=== PATIENT | male | born 1950 | race Caucasian/White ===

== ENCOUNTER 2023-06-13 18:05 | Emergency (ER) | payer MEDICARE, SELFPAY ==
--- NOTE | ~2023-06-13 | CT_ITS ---
EXAMINATION: CT HEAD WITHOUT CONTRAST CT FACIAL BONES WITHOUT CONTRAST CT CERVICAL SPINE WITHOUT CONTRAST CLINICAL INFORMATION: Fall. Pain. COMPARISON: None available. TECHNIQUE: Imaging was performed from the skull base to vertex without intravenous administration of contrast. In addition, helical noncontrast CT imaging was acquired through the cervical spine and facial bones and source images were reviewed along with axial reconstructions and sagittal and coronal MPRs. This CT examination was performed using dose optimization techniques as appropriate, variously including the following: *Automated exposure control. *Adjustment of mA and/or kV according to patient size (this includes techniques or standardized protocols for targeted exams where dose is matched to indication/reason for exam; i.e. extremities or head). *Use of iterative reconstruction technique. DLP: 1326 mGy-cm FINDINGS: Head: There is no evidence of acute intracranial hemorrhage or edematous territorial infarction. Elias-white matter differentiation is preserved. Confluent hypoattenuation in the periventricular and deep white matter. Proportional prominence of the ventricles and sulcal spaces without evidence of obstructive hydrocephalus. No abnormal mass effect or midline shift. No extra-axial fluid collections. Calcific atherosclerotic disease of the intracranial internal carotid and vertebral arteries. No hyperdense vessel sign. Small soft tissue laceration and moderate subcutaneous edema along the right aspect of the frontal bone extending along the right supraorbital ridge and preseptal, periorbital soft tissues. No associated acute osseous abnormalities. Maxillofacial Bones: No evidence of maxillofacial bone fractures. The zygomatic arches remain intact. No nasal bone fracture. The nasal septum remains midline. No evidence of mandibular or maxillary fracture. The mandibular condyles remain well-seated in their respective temporal articular grooves. Normal appearance of the intraconal and extraconal fat. No evidence of traumatic injury to the extraocular musculature or globes. Mild mucosal thickening of the paranasal sinuses. The mastoid air cells and middle ear cavities are clear. No layering fluid collections. Empty socket of the maxillary left lateral incisor. Cervical Spine: The atlantooccipital and atlantoaxial articulations remain well aligned. Minimal degenerative anterolisthesis of C4 on C5. Otherwise, normal anatomic alignment. No evidence of acute fracture or subluxation. The vertebral body heights are maintained. Advanced degenerative disc disease from C5-C7. Moderate degenerative disc disease at all additional levels. Facet and uncovertebral joint arthropathy leads to osseous encroachment on the neural foramina from C3-C7. There is no prevertebral soft tissue swelling. The thyroid gland and remaining cervical soft tissues are within normal limits. Calcified pleural plaques along the bilateral lung apices suggests of prior asbestos exposure. Otherwise, the lung apices demonstrate no abnormalities. CT/CT cervical spine wo IV con IMPRESSION: 1. No evidence of acute intracranial hemorrhage or edematous territorial infarction. Moderate to extensive underlying microangiopathy and generalized cerebral volume loss. 2. No evidence of acute fracture or traumatic subluxation of the cervical spine. Moderate multilevel degenerative spondyloarthropathy of the cervical spine. 3. No evidence of acute fracture of the maxillofacial bones. 4. Small soft tissue laceration and moderate edema along the right aspect of the frontal bone extending along the right supraorbital ridge and preseptal, periorbital soft tissues. No associated osseous abnormalities.
--- NOTE | ~2023-06-13 | XR_ITS ---
EXAMINATION: XR RIBS, RIGHT CLINICAL INFORMATION: Fall. COMPARISON: None available. TECHNIQUE: 3 views of the right ribs were obtained. FINDINGS: Lungs are clear. No consolidation, pneumothorax, or pleural effusion. The cardiomediastinal silhouette and pulmonary vasculature are normal. Osseous structures are unremarkable. Ribs are intact. No fractures are identified. XR/XR ribs RT min 3V w CXR1V IMPRESSION: Unremarkable examination.
[2023-06-13 18:21] VITALS: BP 181/90; PULSE 86; RESP 17; TEMP 36.6; O2SAT 98; BMI 24.3
--- NOTE | 2023-06-13 19:35 | ED_ITS ---
HPI - Wound/Laceration General Chief Complaint: Wound/Laceration Stated Complaint: Fall/Hit to face Time Seen by Provider: 06/13/23 19:19 Source: patient and family Mode of arrival: ambulatory Limitations: no limitations History of Present Illness HPI narrative: 73-year-old male here with complaints of trip and fall with head strike. Patient reports he hit his head on the pavement ground. He there was no loss of consciousness. He had been on Eliquis but this was discontinued 8 days ago. He denies any headache, vision changes, vomiting, neck pain. He does report right rib pain. Denies any chest pain, abdominal pain, shortness of breath Unsure of tetanus status Related Data Allergies Allergy/AdvReac Type Severity Reaction Status Date / Time Penicillins [PCN] Allergy Unknown Verified 06/13/23 18:20 Review of Systems 2 Review of Systems: Yes all other systems are reviewed and are negative Constitutional: Constitutional: Reports no additional constitutional complaints, Denies body ache(s), Denies chills, Denies fever(s), Denies headache(s) and Denies weakness Eyes: Eyes: Reports no additional eye complaints and Denies change in vision ENT: Reports system reviewed and no additional complaints, except as documented, Denies dizziness, Denies headache(s), Denies nasal congestion, Denies nasal discharge and Denies neck pain Cardiovascular: Cardiovascular: Reports no additional cardiovascular complaints, Reports chest pain, Denies leg edema and Denies dyspnea Respiratory: Respiratory: Reports no additional respiratory complaints, Denies cough and Denies dyspnea Gastrointestinal: Gastrointestinal: Reports no additional gastrointestinal complaints, Denies abdominal pain, Denies diarrhea, Denies nausea and Denies vomiting Genitourinary: Genitourinary: Denies urinary incontinence Musculoskeletal: Musculoskeletal: Reports no additional musculoskeletal complaints, Denies back pain, Denies arthralgias, Denies joint swelling, Denies neck pain, Denies numbness and Denies tingling Integumentary/Breasts: Skin/Breast: Reports system reviewed and no additional complaints, except as docu, Denies rash and Reports wounds Neurologic: Reports system reviewed and no additional complaints, except as documented, Denies Abnormal speech present, Denies dizziness, Denies headache(s), Denies numbness, Denies tingling and Denies weakness PMF Past Medical History Attestation statement: The following information was validated with the patient. Source: old records reviewed and nursing notes reviewed Social History Social History Advance Directives: No Advance Directives Information Provided: No Physical Exam 2 Vital Signs: Vital Signs: Last Vital Signs Temp 98 F 06/13/23 18:21 Pulse 86 06/13/23 18:21 Resp 17 06/13/23 18:21 BP 181/90 H 06/13/23 18:21 Pulse Ox 98 06/13/23 18:21 O2 Del Method Room Air 06/13/23 18:21 BMI result Body Mass Index 24.3 Const: General: cooperative, healthy appearing, comfortable and no acute distress Orientation/consciousness: patient oriented x3 Limitations: no limitations HEENT: Other: No hemotympanum Head: Yes normal to inspection, No Luther's sign and No raccoon eyes E ars: hearing grossly normal bilaterally and TM's normal bilaterally General nose exam: Normal external nose present Face and sinus: Yes normal facial exam Face images: 1. on the superior aspect the laceration is deeper, the inferior aspect is more superficial abrasion 2. 2cm laceration 3. 5cm laceration Mouth: Normal oral and palatal mucosa present Throat: Yes posterior oropharynx normal Eyes: General: appearance normal, both eyes and all related structures P upils: Equal, round and reactive pupils present Neck: Neck: Yes normal visual inspection Chest: Other: right chest tenderness-no crepitus or ecchymosis Chest palpation & inspection: normal inspection of the chest and tenderness Resp: Effort & Inspection: normal respiratory effort Auscultation: clear to auscultation bilaterally Cardio: Rate: regular rate Rhythm: regular rhythm Peripheral pulses: P eripheral pulses 2+ throughout GI: Inspection: Yes normal to inspection Palpation (GI): Soft to palpation and nontender Auscultation: normal bowel sounds Back/Spine/Pelvis: Thoracic/Lumbar Spine: thoracic and lumbar spine normal to inspection Skin: General skin exam: no rashes or lesions noted Neuro: General: patient oriented x3, moves all extremities, no focal motor deficits and normal sensation to monofilament Cranial nerves: Yes CN's II-XII intact bilaterally, Yes Equal, round and reactive pupils present, Yes Bilaterally intact EOM present, Yes Nystagmus not present, Yes Normal facial strength present and Yes Midline tongue present Cognition (Neuro): normal cognition Speech: No Abnormal speech present Gait exam (Neuro): Normal gait present Motor exam (neuro): 5/5 motor strength present throughout S ensory Exam: Normal double simultaneous stimulation for sensation Extrem: Other: right dorsal hand small skin tear-FROM General: Yes normal to inspection, Yes no pedal edema and Yes no calf tenderness Course Course Course Narrative: 2100-Sign out to Julee EATON pending imaging Reevaluation(s) Reevaluation #1: Patient received in sign-out pending imaging. No evidence of fracture on rib x- ray. No evidence of ICH, skull fracture, cervical vertebral fracture or subluxation, or fracture of maxillofacial bones on CT scans. Results discussed with patient and feel patient is stable for discharge home at this time. Patient and son are in agreement with this plan. Return precautions discussed. Instructed patient to follow-up with his primary care provider this week. Time: 21:55 Medications Administered Discontinued Medications Generic Name Dose Route Start Last Admin Trade Name Darq PRN Reason Stop Dose Admin Acetaminophen 975 mg 06/13/23 21:05 06/13/23 21:23 Acetaminophen 325 Mg Tablet PO 06/13/23 21:06 975 mg ONCE ONE Administration Diphtheria/Tetanus/Acell Pertussis 0.5 ml 06/13/23 21:09 06/13/23 21:14 Diphth,Pertus(Acell),Tet Adult 0.5 Ml Syringe IM 06/13/23 21:10 Not Given .ONCE ONE Lidocaine/Epinephrine 20 ml 06/13/23 19:34 06/13/23 19:53 Lidocaine Hcl 1%/Epi 1:100,000 20 Ml Vial INFILTRATI 06/13/23 19:35 20 ml ONCE ONE Administration Medical Decision Making Medical Decision Making [facility] Narrative: 73-year-old male here with complaints of trip and fall with head strike. Patient reports he hit his head on the pavement ground. He there was no loss of consciousness. He had been on Eliquis but this was discontinued 8 days ago. He denies any headache, vision changes, vomiting, neck pain. He does report right rib pain. Denies any chest pain, abdominal pain, shortness of breath Will need CT head, cervical spine, facial bones, rib xray and wound repair tetanus updated Differential Diagnosis Differential Diagnoses: The differential diagnosis associated with the presentation includes laceration, contusion, abrasion low suspicion for facial fracture, ICH, skull fracture, cervical fracture rib contusion, rib fracture. low concern for intrathoracic or intraabdominal pathology Admission/Observation Consideration of admission/observation: Escalation of care including admission/observation considered Independent Interpretation I performed an independent interpretation of an: Plain X-Ray and CT Scan Radiology Impression Discussion of test interpretation with radiology: I have reviewed the radiologist's reading. Independent Historian Clinical information obtained from an independent historian. History obtained from or confirmed by: Other Procedures Laceration Laceration 1: Site: face Side (If applicable): right Size (cm): 2 Description: linear Depth: simple, single layer Local Anesthetic: lidocaine 1% and with epi Amount of anesthesia used (mL): 1 Pre-repair: wound explored and irrigated extensively Skin layer closed with: other (prolene) Size (cm): 6-0 Number of sutures: 2 Technique: simple, interrupted Laceration 2: Site: face Side (If applicable): right Size (cm): 2 Description: linear Depth: simple, single layer Pre-repair: wound explored and irrigated extensively Skin layer closed with: other (skin glue ) Laceration 3: Site: face Side (If applicable): right Size (cm): 5 Description: irregular Depth: simple, single layer Local Anesthetic: lidocaine 1% Amount of anesthesia used (mL): 3 Pre-repair: wound explored and irrigated extensively Skin layer closed with: other (prolene) Size (cm): 6-0 Number of sutures: 5 Technique: simple, interrupted Laceration 4: Site: hand Side (If applicable): right Description: flap (skin tear) Pre-repair: wound explored and irrigated extensively Skin layer closed with: other (steri strips ) Discharge Plan Discharge Clinical Impression: Laceration, Skin tear of hand without complication, Contusion of rib on right side Patient Disposition: Home, Self-Care Instructions: Laceration (ED), Skin Adhesive Care (ED), Steristrips (ED), Rib Contusion (ED) Additional Instructions: Sutures need to be removed in 5-7 days. You do have several bandages over your sutures and skin tear. These will typically fall off in a few days. You do not need to replace them. You may shower normally. Do not use a washcloth on your face or any scrubbing of your face. Your CT was normal. Return for any severe headache, vomiting or behavior change Take Tylenol for pain as needed Return for any signs of infections just redness, drainage, fever Referrals: Luna Ayala MD [Primary Care Provider] - 1 week
[2023-06-13] MEDS: Lidocaine HCl 1%/Epi 1:100,000 20 ML VIAL INFILTRATI (19:53)
[2023-06-13] MEDS: Acetaminophen 325 MG TABLET 975 MG PO (21:23)
== END 2023-06-13 22:13 | disposition home or self-care (01) ==
PROVIDERS: Emergency Provider Emergency Medicine; PCP Internal Medicine
DX: S61.411A Laceration without foreign body of right hand, initial encounter (principal); S20.211A Contusion of right front wall of thorax, initial encounter; S01.81XA Laceration without foreign body of other part of head, initial encounter; M54.2 Cervicalgia; R51.9 Headache, unspecified; R07.89 Other chest pain; W01.10XA Fall on same level from slipping, tripping and stumbling with subsequent striking against unspecified object, initial encounter; Y93.9 Activity, unspecified; Y92.9 Unspecified place or not applicable; Y99.8 Other external cause status
CPT/HCPCS: 12041; 12053; 70450; 70486; 71101; 72125; 99283; 99284

== ENCOUNTER 2023-08-09 10:10 | Day surgery (SDC) | payer MEDICARE, SELFPAY ==
[2023-08-05 11:05] VITALS: BMI 24.0
--- NOTE | 2023-08-05 14:50 | HO.ANESPROP2 ---
Documented by User: Trinidad Harrington NP 08/06/23 09:11 HPI - Anesthesia Eval Consult details Narrative: 73yo M for Right Cataract Extraction IOL Insertion Eliquis for hx PE No previous cataract on record PMFSH Past Medical History Medical History (Updated 08/05/23 @ 11:08 by Nova Spear, RN) Hx of fall (06/13/23) History of colon cancer Bilateral foot pain History of prostate cancer Ulcerative colitis IBS (irritable bowel syndrome) Hx of diverticulitis of colon Cataract Anxiety Depression Hx of erectile dysfunction Elevated cholesterol HTN (hypertension) Hx pulmonary embolism Surgical History Surgical History (Updated 08/05/23 @ 11:01 by Nova Spear, KARI) Hx of appendectomy Hx of colonoscopy Hx of prostatectomy Social History Social History Patient Tobacco Use Status: Never used Tobacco Use of substances other than those prescribed or required for medical reasons: No Advance Directives: No Advance Directives Information Provided: Yes Advance Directives on File: No Meds Allergies Allergy/AdvReac Type Severity Reaction Status Date / Time Penicillins [PCN] Allergy Unknown Verified 06/13/23 18:20 Home Medications ?Medication ?Instructions ?Recorded ?Confirmed ?Last Taken ?Type amitriptyline 25 mg tablet 25 mg PO BEDTIME 08/05/23 08/05/23 Unknown History apixaban 5 mg tablet (Eliquis) 5 mg PO BID 08/05/23 08/05/23 Unknown History budesonide 3 mg 9 mg PO DAILY 08/05/23 08/05/23 Unknown History capsule,delayed,extended release cholecalciferol (vitamin D3) 25 25 mcg PO DAILY 08/05/23 08/05/23 Unknown History mcg (1,000 unit) capsule (Vitamin D3) dicyclomine 10 mg capsule 10 mg PO BID PRN Abdominal 08/05/23 08/05/23 Unknown History Discomfort lisinopril 40 mg tablet 40 mg PO DAILY 08/05/23 08/05/23 Unknown History lorazepam 1 mg tablet 1 mg PO DAILY PRN Anxiety 08/05/23 08/05/23 Unknown History pravastatin 40 mg tablet 40 mg PO BEDTIME 08/05/23 08/05/23 Unknown History Exam Height,Weight and Vital Signs: Height 5 ft 9 in Weight 73.6 kg Assessment and Plan Assessment Anesthesia Assessment: Chart Reviewed Documented by User: Dylan Nobles MD 08/09/23 12:46 PMFSH Past Medical History Medical History (Updated 08/05/23 @ 11:08 by Nova Spear RN) Hx of fall (06/13/23) History of colon cancer Bilateral foot pain History of prostate cancer Ulcerative colitis IBS (irritable bowel syndrome) Hx of diverticulitis of colon Cataract Anxiety Depression Hx of erectile dysfunction Elevated cholesterol HTN (hypertension) Hx pulmonary embolism Family History Family history of problems with anesthesia: No Surgical History Surgical History (Updated 08/05/23 @ 11:01 by Nova Spear RN) Hx of appendectomy Hx of colonoscopy Hx of prostatectomy History of Problems with Anesthesia: No Social History Social History Patient Tobacco Use Status: Never used Tobacco Use of substances other than those prescribed or required for medical reasons: No Advance Directives: No Advance Directives Information Provided: Yes Advance Directives on File: No Meds Allergies Allergy/AdvReac Type Severity Reaction Status Date / Time Penicillins [PCN] Allergy Unknown Verified 06/13/23 18:20 Home Medications ?Medication ?Instructions ?Recorded ?Confirmed ?Last Taken ?Type amitriptyline 25 mg tablet 25 mg PO BEDTIME 08/05/23 08/05/23 Unknown History apixaban 5 mg tablet (Eliquis) 5 mg PO BID 08/05/23 08/05/23 Unknown History budesonide 3 mg 9 mg PO DAILY 08/05/23 08/05/23 Unknown History capsule,delayed,extended release cholecalciferol (vitamin D3) 25 25 mcg PO DAILY 08/05/23 08/05/23 Unknown History mcg (1,000 unit) capsule (Vitamin D3) dicyclomine 10 mg capsule 10 mg PO BID PRN Abdominal 08/05/23 08/05/23 Unknown History Discomfort lisinopril 40 mg tablet 40 mg PO DAILY 08/05/23 08/05/23 Unknown History lorazepam 1 mg tablet 1 mg PO DAILY PRN Anxiety 08/05/23 08/05/23 Unknown History pravastatin 40 mg tablet 40 mg PO BEDTIME 08/05/23 08/05/23 Unknown History Exam Airway Mallampati Class: II TM Dist: >3cm Neck ROM: Full Loose/Missing/Broken Teeth: No Heart: rrr Lungs: cta Assessment and Plan Assessment Anesthesia Assessment: Anesthesia Plan Discussed Final Anesthetic Review Family History of Problems with Anesthesia: No History of Problems with Anesthesia: No NPO: Yes ASA Class: III Final Preanesthetic Review: No Changes in Pt Med Stat, Meds/Allgs Chart Reviewed, Consent Obtained/Reviewed and Anes Risks/Benef Reviewed Patient Risk: Intermediate Procedure Risk: Low Anesthetic Plan Anesthetic Plan: MAC: Disposition: Standard PACU
[2023-08-09 12:34] VITALS: BP 184/90; PULSE 82; RESP 16; TEMP 36.3; O2SAT 97
[2023-08-09] MEDS: Lactated Ringers 500 ML 50 ML IV (12:52)
[2023-08-09] MEDS: Tetracaine HCl/PF 0.5% Oph Sol 4 ML DROPS 1 DROP EYE-RIGHT (12:53)
[2023-08-09] MEDS: Tropicamide 1 % Ophth Sol 3 ML BTL 1 DROP EYE-RIGHT ×3 (12:53→13:00)
[2023-08-09] MEDS: Ketorolac Tromethamine 0.5% Op 10 ML DROPS 1 DROP EYE-RIGHT ×3 (12:54→13:00)
[2023-08-09] MEDS: Phenylephrine HCL 2.5% Oph SoL 2 ML BOTTLE 1 DROP EYE-RIGHT ×3 (12:54→13:00)
[2023-08-09] MEDS: Cyclopentolate 1 % Ophth Sol 2 ML DRPBTL 1 DROP EYE-RIGHT ×3 (12:55→13:01)
--- NOTE | 2023-08-09 13:21 | P.PCNO_ITS ---
Ophthalmology Procedure Procedure Date of Service: 08/09/23 Ophthalmology Viscoelastic: Healon Duet Dual Pack Pro Ophthalmology Lenses: IOL Acrysof MP - [id number] (19) Procedure Notes: PREOPERATIVE DIAGNOSIS: Decreased visual acuity right eye secondary to cataract POSTOPERATIVE DIAGNOSIS: Same PROCEDURE: Right cataract extraction with intraocular lens insertion SURGEON: Valente Crane M.D. ANESTHESIA: Topical/MAC ESTIMATED BLOOD LOSS: None COMPLICATIONS: None After obtaining informed consent, the patient was brought to the operating room suite and placed in the supine position. After adequate sedation per anesthesia, topical drops of Tetracaine were given to the right eye. The eye was then prepped and draped in the usual sterile fashion. The operating room microscope was then positioned over the operative eye and a lid speculum placed. A paracentesis was created. Viscoelastic was then instilled into the anterior chamber. A three plane incision was then created temporally, utilizing a 2.85 mm keratome. Capsulotomy forceps were then utilized to create a circular tear capsulotomy. Hydrodissection and hydrodelineation were carried out until adequate mobilization of the nucleus occurred. Phacoemulsification was then utilized to remove the dense central nucl eus followed by removal of the cortical material utilizing the automated aspiration irrigation unit. Viscoelastic was instilled into the posterior capsular bag followed by placement of a posterior chamber intraocular lens without difficulty. The residual Viscoelastic was then removed utilizing the automated IA machine. The wound was checked and found to be watertight. The patient tolerated the procedure well and the lid speculum was removed. Intracameral injection of Vigamox 0.1 mL followed by a subtenon injection of Kenalog-40 0.2 mL were administered. The patient will be seen in the a.m.
--- NOTE | 2023-08-09 13:21 | MHC.SHP ---
Pre-Procedural Eval Section A - 24 Hr Update-Section A only Date of Service: 08/09/23 The patient is an INPATIENT: No Changes since office visit: No Cold of Flu in the past 2 weeks, No New Medical Problems, No Changes in Medication and No Patient answered all questions The patient has been examined within 24 hours of the surgical procedure. The History & Physical has been completed within 30 days and I have reviewed it.: Yes Section B - Complete if H&P > 30 days Chief Complaint: Age-related nuclear cataract, right eye Allergies: Allergies Allergy/AdvReac Type Severity Reaction Status Date / Time Penicillins [PCN] Allergy Unknown Verified 06/13/23 18:20 Plan Diagnosis/Plan: Unchanged I have reviewed the history and physical and performed a pertinent physical examination on my patient. No changes have occurred unless specified. Time Spent With Patient Time: Total time managing care of this patient today ____ minutes.
[2023-08-09 13:49] VITALS: BP 156/76; PULSE 70; RESP 12; TEMP 36.6; O2SAT 100
[2023-08-09 14:06] VITALS: BP 154/73; PULSE 73; RESP 18; TEMP 36.6; O2SAT 98
== END 2023-08-09 15:51 | disposition home or self-care (01) ==
PROVIDERS: PCP Internal Medicine; Visit Provider Ophthalmology
PROC: (CPT 66985; principal; 2023-08-09 12:10)
DX: H25.11 Age-related nuclear cataract, right eye (principal); H54.7 Unspecified visual loss; H52.203 Unspecified astigmatism, bilateral; I10 Essential (primary) hypertension; E78.00 Pure hypercholesterolemia, unspecified; F32.A Depression, unspecified; Z85.46 Personal history of malignant neoplasm of prostate; Z86.711 Personal history of pulmonary embolism; Z79.01 Long term (current) use of anticoagulants; Z79.899 Other long term (current) drug therapy; Z88.0 Allergy status to penicillin; Z98.890 Other specified postprocedural states
CPT/HCPCS: 66984; J2250; J3010; J3301; V2630

== ENCOUNTER 2023-08-23 11:38 | Day surgery (SDC) | payer MEDICARE, SELFPAY ==
[2023-08-05 11:15] VITALS: BMI 24.0
--- NOTE | 2023-08-20 09:38 | HO.ANESPROP2 ---
Documented by User: Trinidad Harrington NP 08/20/23 09:41 HPI - Anesthesia Eval Consult details Narrative: 73yo M for Left Cataract Extraction IOL Insertion PCP cleared Right eye 08/09/23: Fent 50, Midaz 1 PMFSH Past Medical History Medical History (Updated 08/05/23 @ 11:08 by Nova Spear, RN) Hx of fall (06/13/23) History of colon cancer Bilateral foot pain History of prostate cancer Ulcerative colitis IBS (irritable bowel syndrome) Hx of diverticulitis of colon Cataract Anxiety Depression Hx of erectile dysfunction Elevated cholesterol HTN (hypertension) Hx pulmonary embolism Family History Family history of problems with anesthesia: No Surgical History Surgical History (Updated 08/05/23 @ 11:01 by Nova Spear, RN) Hx of appendectomy Hx of colonoscopy Hx of prostatectomy History of Problems with Anesthesia: No Social History Social History Patient Tobacco Use Status: Never used Tobacco Use of substances other than those prescribed or required for medical reasons: No Advance Directives: No Advance Directives Information Provided: Yes Advance Directives on File: No Meds Allergies Allergy/AdvReac Type Severity Reaction Status Date / Time Penicillins [PCN] Allergy Unknown Verified 06/13/23 18:20 Home Medications ?Medication ?Instructions ?Recorded ?Confirmed ?Last Taken ?Type amitriptyline 25 mg tablet 25 mg PO BEDTIME 08/05/23 08/05/23 Unknown History budesonide 3 mg 9 mg PO DAILY 08/05/23 08/05/23 08/09/23 History capsule,delayed,extended release cholecalciferol (vitamin D3) 25 25 mcg PO DAILY 08/05/23 08/05/23 Unknown History mcg (1,000 unit) capsule (Vitamin D3) dicyclomine 10 mg capsule 10 mg PO BID PRN Abdominal 08/05/23 08/05/23 Unknown History Discomfort lisinopril 40 mg tablet 40 mg PO DAILY 08/05/23 08/05/23 08/09/23 History lorazepam 1 mg tablet 1 mg PO DAILY PRN Anxiety 08/05/23 08/05/23 08/09/23 History pravastatin 40 mg tablet 40 mg PO BEDTIME 08/05/23 08/05/23 Unknown History Exam Height,Weight and Vital Signs: Height 5 ft 9 in Weight 73.6 kg Assessment and Plan Assessment Anesthesia Assessment: Chart Reviewed Final Anesthetic Review Family History of Problems with Anesthesia: No History of Problems with Anesthesia: No Documented by User: Ninoska Hardwick MD 08/23/23 15:02 [facility] Past Medical History Medical History (Updated 08/05/23 @ 11:08 by Nova Spear, KARI) Hx of fall (06/13/23) History of colon cancer Bilateral foot pain History of prostate cancer Ulcerative colitis IBS (irritable bowel syndrome) Hx of diverticulitis of colon Cataract Anxiety Depression Hx of erectile dysfunction Elevated cholesterol HTN (hypertension) Hx pulmonary embolism Surgical History Surgical History (Updated 08/05/23 @ 11:01 by Nova Spear, KARI) Hx of appendectomy Hx of colonoscopy Hx of prostatectomy Social History Social History Patient Tobacco Use Status: Never used Tobacco Use of substances other than those prescribed or required for medical reasons: No Advance Directives: No Advance Directives Information Provided: Yes Advance Directives on File: No Meds Allergies Allergy/AdvReac Type Severity Reaction Status Date / Time Penicillins [PCN] Allergy Unknown Verified 06/13/23 18:20 Home Medications ?Medication ?Instructions ?Recorded ?Confirmed ?Last Taken ?Type amitriptyline 25 mg tablet 25 mg PO BEDTIME 08/05/23 08/05/23 Unknown History budesonide 3 mg 9 mg PO DAILY 08/05/23 08/05/23 08/09/23 History capsule,delayed,extended release cholecalciferol (vitamin D3) 25 25 mcg PO DAILY 08/05/23 08/05/23 Unknown History mcg (1,000 unit) capsule (Vitamin D3) dicyclomine 10 mg capsule 10 mg PO BID PRN Abdominal 08/05/23 08/05/23 Unknown History Discomfort lisinopril 40 mg tablet 40 mg PO DAILY 08/05/23 08/05/23 08/09/23 History lorazepam 1 mg tablet 1 mg PO DAILY PRN Anxiety 08/05/23 08/05/23 08/09/23 History pravastatin 40 mg tablet 40 mg PO BEDTIME 08/05/23 08/05/23 Unknown History Exam Airway Mallampati Class: II (caps throughout) TM Dist: >3cm Neck ROM: Full Heart: rrr Lungs: cta Assessment and Plan Assessment Anesthesia Assessment: Anesthesia Plan Discussed Final Anesthetic Review NPO: Yes ASA Class: II Final Preanesthetic Review: No Changes in Pt Med Stat, Meds/Allgs Chart Reviewed and Consent Obtained/Reviewed Patient Risk: Low Procedure Risk: Low Anesthetic Plan Anesthetic Plan: MAC: Disposition: Standard PACU
[2023-08-23] MEDS: Tetracaine HCl/PF 0.5% Oph Sol 4 ML DROPS 1 DROP EYE-LEFT (13:49)
[2023-08-23] MEDS: Cyclopentolate 1 % Ophth Sol 2 ML DRPBTL 1 DROP EYE-LEFT ×3 (13:50→14:06)
[2023-08-23] MEDS: Tropicamide 1 % Ophth Sol 3 ML BTL 1 DROP EYE-LEFT ×3 (13:52→14:08)
[2023-08-23] MEDS: Ketorolac Tromethamine 0.5% Op 10 ML DROPS 1 DROP EYE-LEFT ×3 (13:54→14:10)
[2023-08-23] MEDS: Phenylephrine HCL 2.5% Oph SoL 2 ML BOTTLE 1 DROP EYE-LEFT ×3 (13:56→14:12)
[2023-08-23] MEDS: Lactated Ringers 500 ML 50 ML IV (13:59)
[2023-08-23 14:06] VITALS: BP 157/84; PULSE 84; RESP 16; TEMP 36.3; O2SAT 98
--- NOTE | 2023-08-23 15:09 | MHC.SHP ---
Pre-Procedural Eval Section A - 24 Hr Update-Section A only Date of Service: 08/23/23 The patient is an INPATIENT: No Changes since office visit: No Cold of Flu in the past 2 weeks, No New Medical Problems, No Changes in Medication and No Patient answered all questions The patient has been examined within 24 hours of the surgical procedure. The History & Physical has been completed within 30 days and I have reviewed it.: Yes Section B - Complete if H&P > 30 days Chief Complaint: Age-related nuclear cataract, left eye Allergies: Allergies Allergy/AdvReac Type Severity Reaction Status Date / Time Penicillins [PCN] Allergy Unknown Verified 06/13/23 18:20 Plan Diagnosis/Plan: Unchanged I have reviewed the history and physical and performed a pertinent physical examination on my patient. No changes have occurred unless specified. Time Spent With Patient Time: Total time managing care of this patient today ____ minutes.
--- NOTE | 2023-08-23 15:10 | HO.PNOPHT ---
Ophthalmology Procedure Procedure Date of Service: 08/23/23 Ophthalmology Viscoelastic: Healon Duet Dual Pack Pro Ophthalmology Lenses: IOL Acrysof MP - [id number] (19) Procedure Notes: PREOPERATIVE DIAGNOSIS: Decreased visual acuity left eye secondary to cataract POSTOPERATIVE DIAGNOSIS: Same PROCEDURE: Left cataract extraction with intraocular lens insertion SURGEON: Valente Crane M.D. ANESTHESIA: Topical/MAC ESTIMATED BLOOD LOSS: None COMPLICATIONS: None After obtaining informed consent, the patient was brought to the operation room suite and placed in the supine position. After adequate sedation per anesthesia, topical drops of Tetracaine were given to the left eye. The eye was then prepped and draped in the usual sterile fashion. The operating room microscope was then positioned over the operative eye and a lid speculum placed. A paracentesis was created. Viscoelastic was then instilled into the anterior chamber. A three plane incision was then created temporally, utilizing a 2.85 mm keratome. Capsulotomy forceps were then utilized to create a circular tear capsulotomy. Hydrodissection and hydrodelineation were carried out until adequate mobilization of the nucleus occurred. Phacoemulsification was then utilized to remove the dense central nucleus followed by removal of the cortical material utilizing the automated aspiration irrigation unit. Viscoat elastic was instilled into the posterior capsular bag followed by placement of a posterior chamber intraocular lens without difficulty. The residual Viscoat elastic was then removed utilizing the automated IA machine. The wound was check and found to be watertight. The patient tolerated the procedure well and the lid speculum was removed. Intracameral injection of Vigamox 0.1 mL followed by a subtenon injection of Kenalog-40 0.2 mL were administered. The patient will be seen in the a.m.
[2023-08-23 15:43] VITALS: BP 158/77; PULSE 76; RESP 17; TEMP 36.7; O2SAT 97
[2023-08-23] MEDS: Acetaminophen 325 MG TABLET 650 MG PO (15:45)
== END 2023-08-23 15:52 | disposition home or self-care (01) ==
PROVIDERS: PCP Internal Medicine; Visit Provider Ophthalmology
PROC: (CPT 66985; principal; 2023-08-23 10:20)
DX: H25.12 Age-related nuclear cataract, left eye (principal); H54.7 Unspecified visual loss; Z83.518 Family history of other specified eye disorder; H52.203 Unspecified astigmatism, bilateral; I10 Essential (primary) hypertension; E78.00 Pure hypercholesterolemia, unspecified; Z79.01 Long term (current) use of anticoagulants; Z79.899 Other long term (current) drug therapy; Z88.0 Allergy status to penicillin
CPT/HCPCS: 66984; J2250; J3010; J3301; V2630